=== PATIENT | female | born 1985 | race Caucasian/White ===

== ENCOUNTER 2016-10-19 13:27 | Inpatient (IN) | payer OTHER ==
[~2016-10-19] VITALS: Ht 149.9 cm; Wt 82.7 kg
[2016-10-19 13:39] VITALS: Ht 149.9 cm; Wt 82.7 kg
[2016-10-19 13:40] VITALS: BP 115/55; PULSE 84; RESP 16
[2016-10-19] MEDS ORDERED: PREN-19 PO (13:43)
--- NOTE | 2016-10-19 14:43 | RADRPT ---
PROCEDURE: US OB biophysical profile. CLINICAL INDICATION: decreased movements TECHNIQUE: Multiple sonographic images of the pelvis were obtained. The images were reviewed on a PACS workstation. COMPARISON: No prior studies are available for comparison. FINDINGS: There is a single viable intrauterine gestation. Cardiac activity is present with 131 beats per min steffen. There is a vertex presentation. The placenta is anterior. There is no evidence of placental abruption. There is a normal amount of amniotic fluid with an BRIANDA = 10.5 cm. Biophysical profile: movement 2/2 tone 2/2. breathing 2/2 BRIANDA 2/2 Total 01/09 RPTAT: AA . IMPRESSION: Normal biophysical profile. . .Jan Le MD, MD Date Time Electronically viewed and signed by .Jan Le MD, MD on 10/19/2016 14:43 .S/
[2016-10-19] MEDS: LACTATED RINGER'S 1,000 ML IV SCH ×3 (16:14→20:50)
[2016-10-19 19:10] LABS: ADD SCAN DIFF NO
[2016-10-19 19:12] LABS: BASOPHILS % 0.3 % (0.0-2.0); EOSINOPHILS # 0.1 10^3/ul (0.0-0.5); EOSINOPHILS % 0.8 % (0.0-7.0); HEMOGLOBIN 12.2 g/dl (12.0-16.0); LYMPHOCYTES # 2.4 10^3/ul (0.8-2.9); LYMPHOCYTES % 26.3 % (15.0-51.0); MEAN CORPUSCULAR HEMOGLOBIN 32.3 pg (29.0-33.0); MEAN CORPUSCULAR HGB CONC 34.9 g/dl (32.0-37.0); MEAN CORPUSCULAR VOLUME 92.6 fl (82.0-101.0); MEAN PLATELET VOLUME 11.1 fl (7.4-10.4); MONOCYTE # 0.4 10^3/ul (0.3-0.9); MONOCYTES % 4.4 % (0.0-11.0); NEUTROPHIL # 6.2 10^3/ul (1.6-7.5); NEUTROPHILS % 67.6 % (39.0-77.0); PLATELET COUNT 204 10^3/UL (140-415); RED BLOOD COUNT 3.78 10^6/ul (4.20-5.40); RED CELL DISTRIBUTION WIDTH 12.8 % (11.5-14.5); WHITE BLOOD COUNT 9.1 10^3/ul (4.8-10.8)
[2016-10-19 19:16] LABS: INR 0.9; PROTIME 12.1 Sec (12.2-14.2); PT RATIO 0.9
[2016-10-19 19:17] LABS: PARTIAL THROMBOPLASTIN TIME 25.8 Sec (25.0-35.0)
[2016-10-19] MEDS ORDERED: OXYTOCIN 30 UNITS/LR 500 ML IV PRN (19:30)
[2016-10-19] MEDS ORDERED: CARBOPROST 250 MCG INJ IM PRN (19:30)
[2016-10-19] MEDS ORDERED: MISOPROSTOL 200 MCG TAB PR PRN (19:30)
[2016-10-19] MEDS ORDERED: OXYTOCIN 30 UNITS/LR 500 ML IV SCH (19:30)
[2016-10-19] MEDS ORDERED: CEFAZOLIN 2 GM/50 ML (PMX) 50 ML IV SCH (19:30)
[2016-10-19] MEDS ORDERED: METHYLERGONOVINE 0.2 MG INJ IM PRN (19:30)
[2016-10-20] MEDS ORDERED: morphine SULFATE/PF (10 MG/10 ML) INJ ONE (00:55)
[2016-10-20] MEDS ORDERED: PHENYLephrine (100 MCG/ML) 5ML SYG ONE ×2 (00:56→01:37)
--- NOTE | 2016-10-20 01:03 | HP ---
Date/Time of Note Date/Time of Note DATE: 10/20/16 TIME: 01:00 OB - History Hx of Present Free Text/Dictation HISTORY OF PRESENT ILLNESS: The patient with history of previous delivery, who desires to have repeat delivery and Permanent steriliation presents with painful UCs. I discussed with the patient the risks , benefits, indications, and alternatives of procedure including but not limited to risks of infection, bleeding, damage to other organs, bowel, bladder , hernia formation, scar formation, possibility of blood transfusion, possible need for emergency hysterectomy, as well as the fact that tubal ligation may fail and there is 1 to 2% risk of failure over lifetime of tubal ligations and the fact that tubal ligation is permanent and irreversible. She was allowed to ask questions. All her questions were answered. Informed consent has been obtained. : 5 Para: 4 Care: Good Care Ultrasounds: Normal mid trimester US Obstetrical Complications: None Medical Complications: None Past Family/Social History * Past Medical, Surgical, Family and Obstetric Histories reviewed from chart. OB Admission Exam Vital Signs Vital Signs Vital Signs Date Time Temp Pulse Resp B/P Pulse Ox O2 Delivery O2 Flow Rate FiO2 10/19/16 13:40 98.6 84 16 115/55 Room Air Physical Exam HEENT: WNL Heart: Rhythm Normal Lungs: Clear, Equal Abdomen: WNL Extremities: Normal Reflexes: Normal Cervical Dilatation: Fingertip Last 72 hours Lab Results CBC & BMP 10/19/16 15:50 OB Assessment/Plan Other Assessment: IUP at 38 weeks with painful UCS with h/o C/S and desires repeat c/s and BTL Other plan: repeat c/s and BTL BIANCA SEGURA MD October 20, 2016 01:03
[2016-10-20] MEDS ORDERED: LANOLIN 7 GM TUBE TOP PRN (01:30)
[2016-10-20] MEDS ORDERED: MISOPROSTOL 200 MCG TAB PR PRN (01:30)
[2016-10-20] MEDS ORDERED: NA PHOSPHATE/BIPHOS 133 ML ENEMA PR PRN (01:30)
[2016-10-20] MEDS ORDERED: OXYCODONE/ACETAMINOPHEN (5/325) TAB PO PRN ×2 (01:30)
[2016-10-20] MEDS ORDERED: FENTAnyl 50 MCG/ML VIAL ONE (01:31)
--- NOTE | 2016-10-20 01:54 | OPR ---
Operative Report Planned Procedure Procedure date October 20, 2016 Procedure Description DATE OF OPERATION: PREOPERATIVE DIAGNOSES: 1. Term , history of previous delivery in early labor 2. Desires repeat delivery. 3. Desires permanent sterilization POSTOPERATIVE DIAGNOSES: 1. Same OPERATION PERFORMED: Repeat delivery Bilateral distal salpingectomy SURGEON: Bianca Silverio MD COLD WORK OPERATOR: MS Kati MD ESTIMATED BLOOD LOSS: 700 mL. COMPLICATIONS: None. The risks, benefits, indications, alternatives of procedure including, but not limited to risk of infection, bleeding, damage to other organs, bowel, bladder, hernia formation, scar formation, possibility of blood transfusions, the risks of tubal ligation such as failure and future pregnancies were discussed with the patient. The fact that BTL is permanent and irreversible also discussed with patient. She was allowed to ask questions. All her questions were answered. Informed consent was obtained. DESCRIPTION OF PROCEDURE: She was taken to the operating room. Spinal anesthesia was induced. She was prepped and draped in the usual sterile fashion. Surgical time out one. Anesthesia was tested to be adequate. With permission from anethesiologist, a knife was used to make a Pfannenstiel skin incision. The incision was taken down in layers. The fascia was cut, undermined and from the underlying muscle using sharp and blunt dissection. All the bleeders were cauterized. Peritoneum was entered bluntly. A low transverse incision was developed over the uterus. Amniotic fluid was clear and adequate. A viable infant in vertex presentation was delivered without any difficulty. The cord was clamped and cut, handed to awaiting team. Placenta was then delivered. Uterus was exteriorized, wrapped around a moist lap. Inside uterus was cleaned using a dry lap. All residual membranes were removed. The uterine incision was then closed using #1 Monocryl in 2 layers. A 5 cm distal end of the right tube was ligated 3 times using 0 plain tie and the ligated portion was cut, sent to pathology. Same procedure was done on the contralateral side. The uterus was inserted back inside the abdominal cavity. Irrigation was done carefully. Careful evaluation of the uterine incision revealed no further bleeding. The tubal ligation sites were evaluated carefully. There was no bleeding. The peritoneum and rectus muscles and fascia were evaluated. All bleeders cauterized. Peritoneum was closed using 2-0 Monocryl. At this time, the count was correct. Rectus fascia was reapproximated using 2-0 Monocryl. Rectus fascia was closed using #1 Vicryl. Subcutaneous tissue was cleaned and irrigated. All bleeders cauterized and the skin closed using 4-0 Monocryl. All counts correct. Post-Procedure Findings: Live Baby [], Apgars [] and [], weight [], position [], [] presentation []cord. Physician Certification I, the undersigned physician, hereby certify that I have discussed the procedure described in this consent form with this patient (or the patient's legal customer loyalty representative), including: * The risk and benefits of the procedure; * Any adverse reactions that may reasonably be expected to occur; * Any alternative efficacious methods of treatment which may be medically viable ; * The potential problems that may occur during recuperation; * Potential for blood transfusion and associated risks/benefits; and * Any research or economic interest I may have regarding this treatment. I further certify that the patient/legally responsible person was encouraged to ask question and that all questions were answered. BIANCA SILVERIO MD October 20, 2016 01:54
[2016-10-20] MEDS ORDERED: FENTAnyl 50 MCG/ML VIAL IV PRN ×2 (02:30)
[2016-10-20] MEDS ORDERED: KETOROLAC 30 MG INJ IV ONE (02:30)
[2016-10-20] MEDS ORDERED: MEPERIDINE 25 MG INJ IV PRN (02:30)
[2016-10-20] MEDS ORDERED: NALOXONE (0.4 MG/ML) INJ IV PRN (02:30)
[2016-10-20] MEDS ORDERED: ONDANSETRON 4 MG INJ IV PRN ×2 (02:30)
[2016-10-20] MEDS ORDERED: HYDROmorphONE 1 MG/ML SYG IV PRN ×2 (02:30)
[2016-10-20] MEDS ORDERED: DIPHENHYDRAMINE 50 MG INJ IV PRN ×2 (02:30)
[2016-10-20] MEDS ORDERED: HYDROmorphONE (0.2 MG/ML) 10ML SYG IV PRN ×3 (02:30)
[2016-10-20] MEDS ORDERED: PROCHLORPERAZINE 10 MG INJ IV PRN (02:30)
[2016-10-20] MEDS ORDERED: METOCLOPRAMIDE 10 MG INJ IV PRN (02:30)
[2016-10-20 05:00] VITALS: BP 108/49; PULSE 62; RESP 20
[2016-10-20 08:00] VITALS: BP 93/45; PULSE 76; RESP 16
[2016-10-20] MEDS: LACTATED RINGER'S 1,000 ML IV SCH ×4 (08:34→23:30)
[2016-10-20] MEDS: SENNA/DOCUSATE NA (8.6MG/50MG) TAB PO SCH ×2 (09:00→20:30)
[2016-10-20] MEDS: KETOROLAC 30 MG INJ IV PRN ×2 (12:23→22:54)
[2016-10-20 12:45] VITALS: BP 100/52; PULSE 81; RESP 14
[2016-10-20 16:20] VITALS: BP 91/49; PULSE 86; RESP 16
[2016-10-20 20:00] VITALS: BP 100/58; PULSE 82; RESP 18
[2016-10-21 00:30] VITALS: BP 114/58; PULSE 78; RESP 20
[2016-10-21] MEDS ORDERED: OXYCODONE/ACETAMINOPHEN (5/325) TAB PO PRN (02:30)
[2016-10-21 04:30] VITALS: BP 93/50; PULSE 72; RESP 20
[2016-10-21] MEDS: IBUPROFEN 600 MG TAB PO SCH ×4 (05:58→23:28)
[2016-10-21 08:10] LABS: ADD SCAN DIFF NO
[2016-10-21 08:18] LABS: BASOPHILS % 0.3 % (0.0-2.0); EOSINOPHILS % 0.3 % (0.0-7.0); HEMATOCRIT 32.2 % (37.0-47.0); HEMOGLOBIN 10.9 g/dl (12.0-16.0); LYMPHOCYTES # 1.6 10^3/ul (0.8-2.9); LYMPHOCYTES % 15.8 % (15.0-51.0); MEAN CORPUSCULAR HEMOGLOBIN 32.3 pg (29.0-33.0); MEAN CORPUSCULAR HGB CONC 33.9 g/dl (32.0-37.0); MEAN CORPUSCULAR VOLUME 95.5 fl (82.0-101.0); MEAN PLATELET VOLUME 10.7 fl (7.4-10.4); MONOCYTE # 0.4 10^3/ul (0.3-0.9); MONOCYTES % 3.5 % (0.0-11.0); NEUTROPHIL # 8.1 10^3/ul (1.6-7.5); NEUTROPHILS % 79.7 % (39.0-77.0); PLATELET COUNT 214 10^3/UL (140-415); RED BLOOD COUNT 3.37 10^6/ul (4.20-5.40); RED CELL DISTRIBUTION WIDTH 13.2 % (11.5-14.5); WHITE BLOOD COUNT 10.1 10^3/ul (4.8-10.8)
[2016-10-21 08:20] VITALS: BP 97/52; PULSE 78; RESP 16
[2016-10-21] MEDS: SENNA/DOCUSATE NA (8.6MG/50MG) TAB PO SCH ×2 (09:26→21:37)
--- NOTE | 2016-10-21 10:40 | CONS ---
Date/Time of Note Date/Time of Note DATE: 10/21/16 TIME: 10:39 Consultation Date/Type/Reason Admit Date/Time October 19, 2016 at 18:00 Initial Consult Date 10/20/16 Type of Consultation: Anesthesiology Reason for Consultation Follow up 24 HR Interval Summary Free Text/Dictation Pt seen and examined at bedside this AM is POD#1 s/p Repeat c/s with BTL. Pt received spinal duramorph injection for post-op pain control and states she has minimal pain in her abdomen without N/V/D/RAY/numbness. Will Follow. Constitutional: chills, improved Exam/Review of Systems Vital Signs Vitals Vital Signs Date Time Temp Pulse Resp B/P Pulse Ox O2 Delivery O2 Flow Rate FiO2 10/21/16 04:30 97.8 72 20 93/50 10/21/16 00:30 Room Air 10/20/16 16:20 99 Intake and Output 10/20/16 10/20/16 10/21/16 15:00 23:00 07:00 Intake Total 1100 ml 2025 ml 625 ml Output Total 1400 ml 1250 ml 2400 ml Balance -300 ml 775 ml -1775 ml Results Result Diagram: 10/21/16 0646 Results 24 hrs Laboratory Tests Test 10/21/16 06:46 White Blood Count 10.1 Red Blood Count 3.37 L Hemoglobin 10.9 L Hematocrit 32.2 L Mean Corpuscular Volume 95.5 Mean Corpuscular Hemoglobin 32.3 Mean Corpuscular Hemoglobin Concent 33.9 Red Cell Distribution Width 13.2 Platelet Count 214 Mean Platelet Volume 10.7 H Neutrophils % 79.7 H Lymphocytes % 15.8 Monocytes % 3.5 Eosinophils % 0.3 Basophils % 0.3 Nucleated Red Blood Cells % 0.0 Neutrophils # 8.1 H Lymphocytes # 1.6 Monocytes # 0.4 Eosinophils # 0.0 Basophils # 0.0 Nucleated Red Blood Cells # 0.0 Medications Medications Current Medications Oxytocin/Lactated Ringer's 500 ml @ 0 mls/hr ONCE PRN IV For Hemorrhage Management; Start 10/19/16 at 19:30 Methylergonovine Maleate (Methergine) 0.2 mg ONCE PRN IM VAGINAL BLEEDING; Start 10/19/16 at 19:30 Carboprost Tromethamine (Hemabate) 250 mcg ONCE PRN IM VAGINAL BLEEDING; Start 10/19/16 at 19:30 Misoprostol (Cytotec) 1,000 mcg ONCE PRN CA VAGINAL BLEEDING; Start 10/19/16 at 19:30 Ibuprofen (Motrin) 600 mg Q6 PO Last administered on 10/21/16 05:58; Admin Dose 600 MG; Start 10/21/16 at 06:00 Simethicone (Mylicon) 160 mg Q8H PRN PO DISTENSION/GAS/BLOATING; Start at 01:30 Senna/Docusate Sodium (Senokot-S) 1 tab BID PO Last administered on 10/21/16 09:26; Admin Dose 1 TAB; Start 10/20/16 at 09:00 Sodium Biphosphate/ Sodium Phosphate (Fleet Enema) 133 ml DAILY PRN CA CONSTIPATION; Start 10/20/16 at 01:30 Diphtheria/ Tetanus/Acell Pertussis (Adacel) 0.5 ml ONCE ONCE IM* ; Start at 09:00; Stop 10/23/16 at 09:01 Measles/Mumps/ Rubella Vaccine Live (Mmr Ii Vaccine) 0.5 ml ONCE ONCE SC* ; Start 10/23/16 at 09:00; Stop 10/23/16 at 09:01 Misoprostol (Cytotec) 1,000 mcg ONCE PRN CA VAGINAL BLEEDING; Start 10/20/16 at 01:30 Oxycodone/ Acetaminophen (Percocet (5/ 325)) 1 tab Q4H PRN PO PAIN LEVEL 4-6; Start 10/21/16 at 02:30 Oxycodone/ Acetaminophen (Percocet (5/ 325)) 2 tab Q4H PRN PO PAIN LEVEL 7-10 Last administered on 10/21/16 02:42; Admin Dose 2 TAB; Start 10/21/16 at 02:30 KATIA JORDAN October 21, 2016 10:40
[2016-10-21 12:00] VITALS: BP 104/50; PULSE 73; RESP 17
--- NOTE | 2016-10-21 12:16 | PN ---
Date/Time of Note Date/Time of Note DATE: 10/21/16 TIME: 12:12 OB Subjective Subjective Subjective POD #1 status post repeat Patient has no complaints, positive flatus, voiding and ambulating Patient is tolerating regular diet OB Objective HEENT: WNL Heart: Rhythm Normal Lungs: Clear, Equal Abdomen: WNL (Incision C/D/I) Extremities: Normal Reflexes: Normal OB Assessment/Plan Other Assessment: POD #1 status post repeat Patient is stable and afebrile Other plan: Encourage to ambulate Continue with present management DONALD MORIN MD October 21, 2016 12:16
[2016-10-21] MEDS: OXYCODONE/ACETAMINOPHEN (5/325) TAB PO PRN ×2 (12:50→21:33)
[2016-10-21 16:00] VITALS: BP 101/54; PULSE 75; RESP 16
[2016-10-21 19:45] VITALS: BP 105/77; PULSE 77; RESP 18
[2016-10-22 04:20] VITALS: BP 93/58; PULSE 70; RESP 17
[2016-10-22] MEDS: IBUPROFEN 600 MG TAB PO SCH ×3 (05:57→17:46)
[2016-10-22 08:00] VITALS: BP_SYST 101; BP_SYST 94; BP_DIAS 46; BP_DIAS 50; PULSE 74; PULSE 77; RESP 18
[2016-10-22] MEDS: SENNA/DOCUSATE NA (8.6MG/50MG) TAB PO SCH ×2 (09:51→21:46)
--- NOTE | 2016-10-22 12:41 | QN ---
Documentation Comment pod2 pt doing well vss exam wnl a/p pod 2 pt doing well continue care MARCELINO ELLIOTT MD October 22, 2016 12:41
[2016-10-22] MEDS: OXYCODONE/ACETAMINOPHEN (5/325) TAB PO PRN ×2 (12:56→21:47)
[2016-10-22 19:40] VITALS: BP 101/57; PULSE 90; RESP 18
[2016-10-23] MEDS: IBUPROFEN 600 MG TAB PO SCH ×2 (00:09→05:29)
[2016-10-23 04:00] VITALS: BP 103/70; PULSE 76; RESP 18
--- NOTE | 2016-10-23 07:27 | DS ---
Date/Time of Note Date/Time of Note DATE: 10/23/16 TIME: 07:23 Obstetrical Discharge Record Final Diagnosis Final Diagnosis: Term delivered Other Final Diagnosis s/p repeat c/s and BTL without complication. was unremarkable. Rx for [place] 5/325 and Motrin 600 mg prn provided Vaginal Delivery Obstetrical Delivery: Bilateral Tubal Ligation Section Section: Repeat Complications Augmentation: No Induction: No Condition on Discharge Physical Assessment Voiding: Yes Bowel Movement: Yes Breast: Soft, non-tender, Filling Fundus: Firm Abdomen and Incision: soft, appropriate tender Episiotomy: clean dry and intact, no sign of infection Calf Tenderness: No Patient Condition: Good BIANCA SEGURA MD October 23, 2016 07:27
[2016-10-23 08:00] VITALS: BP 101/63; PULSE 80; RESP 18
[2016-10-23] MEDS ORDERED: MEASLES,MUMPS,RUBELLA VACCINE INJ SC* ONE (09:00)
[2016-10-23] MEDS ORDERED: DIPHTH/TET/ACEL PERTUSS (ADULT) 0.5 ML VIAL IM* ONE (09:00)
[2016-10-23] MEDS: SENNA/DOCUSATE NA (8.6MG/50MG) TAB PO SCH (09:42)
[2016-10-23] MEDS: OXYCODONE/ACETAMINOPHEN (5/325) TAB PO PRN (10:19)
== END 2016-10-23 11:27 | disposition home or self-care (01) | DRG 766 ==
LOC: OBT 13:27 → L-D 13:27 → OBT 18:00 → L-D 18:00 → PP1 10-20 04:13
PROVIDERS: ADMIT Specialist; ATTEND Specialist
PROC: 10D00Z1 Extraction of Products of Conception, Low, Open Approach (ICD-10-PCS; principal; 2016-10-19)
PROC: 0UB70ZZ Excision of Bilateral Fallopian Tubes, Open Approach (ICD-10-PCS; 2016-10-19)
DX: O34.211 Maternal care for low transverse scar from previous cesarean delivery (principal); Z30.2 Encounter for sterilization; Z3A.38 38 weeks gestation of pregnancy; Z37.0 Single live birth
CPT/HCPCS: 36415; 76818; 85025; 85610; 85730; 86592; 86850; 86900; 86901; 87340; 88302; 90715; 96360; 96361; 99464; G0463; J0690; J1170; J1885; J2274; J2370; J2590; J3010; J7120